=== PATIENT | male | born 2000 | race Two or more races ===

== ENCOUNTER 2020-03-23 19:51 | Emergency (ER) | payer OTHER ==
[~2020-03-23] VITALS: Ht 180.3 cm; Wt 97.5 kg
[2020-03-23 20:32] VITALS: BP 130/97
== END 2020-03-23 22:12 | disposition left against medical advice (07) ==
LOC: ER 19:51
DX: R42 Dizziness and giddiness (principal); Z53.21 Procedure and treatment not carried out due to patient leaving prior to being seen by health care provider